=== PATIENT | male | born 1965 | race Caucasian/White ===

== ENCOUNTER 2017-09-26 09:01 | Emergency (ER) | payer OTHER, BC ==
[~2017-09-26] VITALS: Ht 180.3 cm; Wt 97.4 kg
[2017-09-26 11:08] LABS: APPEARANCE CLEAR ((CLEAR)); BILIRUBIN NEGATIVE; BLOOD MODERATE; COLOR STRAW ((YELLOW)); GLUCOSE (STRIP) NEGATIVE; KETONES NEGATIVE; LEUKOCYTES NEGATIVE; NITRITE NEGATIVE; PROTEIN (STRIP) NEGATIVE; UROBILINOGEN 0.2 MG/DL (0.2-1.0)
[2017-09-26 11:13] LABS: BACTERIA NONE SEEN /HPF; EPITHELIAL CELLS NONE SEEN /HPF; MUCUS TRACE /LPF; RED BLOOD CELLS TNTC /HPF (0-5); UCUL ADDED? YES; WHITE BLOOD CELLS 0-5 /HPF (0-5)
[2017-09-26] MEDS ORDERED: FLEXERIL10 MG PO (11:59)
[2017-09-26] MEDS ORDERED: MOTRIN800 MG PO (11:59)
[2017-09-26 12:26] VITALS: BP 138/87
== END 2017-09-26 12:44 | disposition home or self-care (01) ==
LOC: EME 09:01
PROVIDERS: Emergency Medicine
DX: G44.209 Tension-type headache, unspecified, not intractable (principal); S16.1XXA Strain of muscle, fascia and tendon at neck level, initial encounter; R31.9 Hematuria, unspecified; R10.12 Left upper quadrant pain; R30.0 Dysuria; R07.9 Chest pain, unspecified; R11.0 Nausea; V49.40XA Driver injured in collision with unspecified motor vehicles in traffic accident, initial encounter; Y92.410 Unspecified street and highway as the place of occurrence of the external cause; M25.78 Osteophyte, vertebrae; Q63.1 Lobulated, fused and horseshoe kidney; M51.37 Other intervertebral disc degeneration, lumbosacral region; K40.20 Bilateral inguinal hernia, without obstruction or gangrene, not specified as recurrent; N20.0 Calculus of kidney; K42.9 Umbilical hernia without obstruction or gangrene
CPT/HCPCS: 70450; 71260; 72125; 74177; 80047; 81003; 87086; 99281; 99284; J7120